=== PATIENT | male | born 1965 | race Caucasian/White ===

== ENCOUNTER 2018-02-21 11:11 | Observation (INO) ==
[2018-02-21] MEDS ORDERED: ASPIRIN 325 MG TABLET PO STA (11:26)
[2018-02-21] MEDS ORDERED: NITROGLYCERIN 2% OINT 1 INCH/GM PACK TOP STA (11:26)
[2018-02-21 11:56] LABS: Basophils % 0.3 % (0.0-0.8); Eosinophils % 0.1 % (0.00-10.9); Hematocrit 44.1 VOL% (42.0-52.0); Hemoglobin 15.3 GM/DL (14.0-18.0); Immature Granulocytes % 0.4 %; Immature Granulocytes Absolute 0.04 #; Lymphocytes # 1.2 10*3/uL (1.4-4.0); Lymphocytes % 12.2 % (21.2-54.2); Mean Corpuscular HGB Conc 34.7 GM/DL (32-36); Mean Corpuscular Hemoglobin 31 PG (27-34); Mean Corpuscular Volume 90.6 FL (87-102); Mean Platelet Volume 8.9 FL (9.6-12.0); Monocytes # 0.4 10*3/uL (0.11-0.8); Monocytes % 3.9 % (1.7-12.7); Neutrophils % 83.1 % (38.7-73.9); Platelet Count 230 T/CUMM (130-400); Red Blood Count 4.87 MC/CUMM (3.8-5.5); Red Cell Distribution Width 12.1 % (9.3-17.3); White Blood Count 9.6 T/CUMM (4-12)
[2018-02-21 12:23] LABS: Alanine Aminotransferase 43 U/L (16-61); Albumin 3.9 G/DL (3.4-5.0); Alkaline Phosphatase 59 U/L (45-117); Aspartate Amino Transferase 20 U/L (0-37); Blood Urea Nitrogen 20 MG/DL (7-18); Calcium 8.8 MG/DL (8.5-10.1); Glucose 200 MG/DL (74-106); Potassium 4.1 MMOL/L (3.5-5.1); Sodium 136 MMOL/L (136-145); Total Protein 7.1 G/DL (6.4-8.3); Troponin I < 0.015 NG/ML (0.00-0.045)
[2018-02-21 12:50] LABS: INR 1.1; PT Patient Result 11.3 SECS; Partial Thromboplastin Time 24.6 SECS (0-40)
[2018-02-21] MEDS ORDERED: METOCLOPRAMIDE 10 MG/2 ML VIAL IV STA (13:10)
[2018-02-21] MEDS ORDERED: PANTOPRAZOLE 40 MG VIAL IV STA (13:10)
[2018-02-21] MEDS ORDERED: LACTULOSE 20 GM/30 ML UDCUP PO PRN (16:21)
[2018-02-21] MEDS ORDERED: DOCUSATE SODIUM 100 MG CAPSULE PO PRN (16:21)
[2018-02-21] MEDS ORDERED: DEXTROSE 50% 25 GM/50 ML VIAL IV PRN (16:21)
[2018-02-21] MEDS ORDERED: ONDANSETRON 4 MG/2 ML VIAL IV PRN (16:21)
[2018-02-21] MEDS ORDERED: MAGNESIUM SULF RIDER 4 GM in PREMIX 1 EACH IV PRN (16:21)
[2018-02-21] MEDS ORDERED: MORPHINE 4 MG/1 ML VIAL IV PRN (16:21)
[2018-02-21] MEDS ORDERED: MAGNESIUM SULF RIDER 2 GM in PREMIX 1 EACH IV PRN (16:21)
[2018-02-21] MEDS ORDERED: GLUCAGON 1 MG VIAL IM PRN (16:21)
[2018-02-21] MEDS ORDERED: ACETAMINOPHEN 325 MG TABLET PO PRN (16:21)
[2018-02-21] MEDS ORDERED: NITROGLYCERIN SL 0.4 MG TABLET SL PRN (16:31)
[2018-02-21] MEDS: INSULIN LISPRO 100 UNIT/ML SUBCUT SCH ×2 (17:47→22:06)
[2018-02-21] MEDS: PANTOPRAZOLE 40 MG TABLET PO SCH (17:48)
[2018-02-21] MEDS: ENOXAPARIN 120 MG/0.8 ML SYRINGE SUBCUT SCH (17:51)
[2018-02-21] MEDS: metFORMIN 500 MG TABLET PO SCH (17:54)
[2018-02-21] MEDS: PREGABALIN 75 MG CAPSULE PO SCH (22:06)
[2018-02-21] MEDS: CEFUROXIME 250 MG TABLET PO SCH (22:06)
[2018-02-21] MEDS: DOXYCYCLINE HYCLATE 100 MG CAPSULE PO SCH (22:06)
[2018-02-21] MEDS: CARVEDILOL 3.125 MG TABLET PO SCH (22:06)
[2018-02-21] MEDS: POTASSIUM CITRATE 10 MEQ TABLET PO SCH (22:06)
[2018-02-22 05:12] LABS: Basophils % 0.3 % (0.0-0.8); Eosinophils % 0.3 % (0.00-10.9); Hematocrit 42.4 VOL% (42.0-52.0); Hemoglobin 14.5 GM/DL (14.0-18.0); Immature Granulocytes % 0.5 %; Immature Granulocytes Absolute 0.06 #; Lymphocytes # 3.2 10*3/uL (1.4-4.0); Lymphocytes % 28.1 % (21.2-54.2); Mean Corpuscular HGB Conc 34.2 GM/DL (32-36); Mean Corpuscular Hemoglobin 32 PG (27-34); Mean Corpuscular Volume 92.4 FL (87-102); Mean Platelet Volume 9.3 FL (9.6-12.0); Monocytes # 0.7 10*3/uL (0.11-0.8); Monocytes % 6.6 % (1.7-12.7); Neutrophils # 7.2 10*3/uL (1.4-7.4); Neutrophils % 64.2 % (38.7-73.9); Platelet Count 210 T/CUMM (130-400); Red Blood Count 4.59 MC/CUMM (3.8-5.5); Red Cell Distribution Width 12.2 % (9.3-17.3); White Blood Count 11.3 T/CUMM (4-12)
[2018-02-22 05:43] LABS: Calcium 8.8 MG/DL (8.5-10.1); Osmolality,Calculated 278.7 MOS/KG (273-304); Potassium 4.1 MMOL/L (3.5-5.1); Risk Ratio 4.8; VLDL CHOLESTEROL 79.4 MG/DL
[2018-02-22] MEDS: ENOXAPARIN 120 MG/0.8 ML SYRINGE SUBCUT SCH (07:28)
[2018-02-22 08:09] VITALS: BP 124/80
[2018-02-22] MEDS: metFORMIN 500 MG TABLET PO SCH (08:41)
[2018-02-22] MEDS: DOXYCYCLINE HYCLATE 100 MG CAPSULE PO SCH (08:42)
[2018-02-22] MEDS: POTASSIUM CITRATE 10 MEQ TABLET PO SCH (08:43)
[2018-02-22] MEDS: CEFUROXIME 250 MG TABLET PO SCH (08:43)
[2018-02-22] MEDS: CARVEDILOL 3.125 MG TABLET PO SCH (08:44)
[2018-02-22] MEDS: PANTOPRAZOLE 40 MG TABLET PO SCH (08:44)
[2018-02-22] MEDS: PREGABALIN 75 MG CAPSULE PO SCH (08:45)
[2018-02-22] MEDS ORDERED: PITAVASTATIN 2 MG TABLET PO SCH (09:00)
[2018-02-22] MEDS ORDERED: ALLOPURINOL 300 MG TABLET PO SCH (09:00)
[2018-02-22] MEDS ORDERED: LISINOPRIL 20 MG TABLET PO SCH (09:00)
[2018-02-22] MEDS ORDERED: ASPIRIN EC 81 MG TABLET PO SCH (09:00)
[2018-02-22] MEDS ORDERED: predniSONE 10 MG TABLET PO SCH (09:00)
[2018-02-22] MEDS ORDERED: hydroCHLOROthiazide 25 MG TABLET PO SCH (09:00)
[2018-02-22] MEDS: INSULIN LISPRO 100 UNIT/ML SUBCUT SCH (10:31)
== END 2018-02-22 11:45 | disposition home or self-care (01) ==
LOC: N.ED 11:11 → N.EDINP 11:11 → N.TELES 17:36
PROVIDERS: ADMIT Internal Medicine; ATTEND Internal Medicine